=== PATIENT | female | born 1975 | race Caucasian/White ===

== ENCOUNTER 2024-12-02 17:03 | Emergency (ER) | payer MEDICAID ==
[~2024-12-02] VITALS: Ht 162.6 cm; Wt 87.0 kg
[2024-12-02 17:52] VITALS: TEMP 36.7; O2SAT 99
[2024-12-02] MEDS ORDERED: CLIN60GE5 TP (20:48)
[2024-12-02 20:59] VITALS: BP 134/79; PULSE 66; RESP 12; O2SAT 99
== END 2024-12-02 21:01 | disposition home or self-care (01) ==
LOC: ER 17:03
DX: S91.209A Unspecified open wound of unspecified toe(s) with damage to nail, initial encounter (principal); L73.2 Hidradenitis suppurativa; X58.XXXA Exposure to other specified factors, initial encounter; Y93.89 Activity, other specified; Y92.89 Other specified places as the place of occurrence of the external cause; Y99.8 Other external cause status
CPT/HCPCS: 73630; 99283